=== PATIENT | female | born 1940 | race Caucasian/White ===

== ENCOUNTER → 2022-01-05 13:40 | Outpatient (CLI) | payer MEDICARE, OTHER, SELFPAY ==
--- NOTE | 2022-01-05 13:49 | DI.ECHO.S_ITS ---
[facility] +---------+ : : [address] : [address] : : : : [id number] : : : : Phone: [phone]---------+ Echocardiogram Report + + :Name: MELITA RANDALL Study Date: 01/05/2022 Height: 63 in : :[facility] ReadingLocation: Weight: 155 lb : : Gender: Female BSA: 1.7 m2 : :: 1940 Age: 81 yrs BP: 158/83 mmHg: :Reason For Study: Rheumatic Heart DZ : :Ordering Physician: KIRBY, : :KEVIN Meyers Performed By: Roland Ladd : :Referring: KEVIN ORR : + + Interpretation Summary The left ventricle is normal in size. There is mild-moderate concentric left ventricular hypertrophy. Left ventricular systolic function is normal. The ejection fraction is estimated to be 60-65%. There are no focal wall motion abnormalities. The right ventricle is normal in size and function. Pulmonary artery pressures cannot be estimated because of the lack of a measurable TR jet velocity. The aortic valve is severely calcified. There is moderate to severe aortic stenosis. The calculated aortic valve area is 0.9 cm2. The aortic valve mean gradient is 36 mmHg. There is no other significant valvular heart disease. The aortic root is normal size. Procedure: A two-dimensional transthoracic echocardiogram with color flow and Doppler was performed. The study quality was technically adequate. There is no prior echocardiogram noted for this patient. Left Ventricle: The left ventricle is normal in size. There is mild-moderate concentric left ventricular hypertrophy. Left ventricular systolic function is normal. The ejection fraction is estimated to be 60-65%. There are no focal wall motion abnormalities. Diastolic function could not be accurately assessed due to contradictory data. Right Ventricle: The right ventricle is normal in size and function. Atria: Both atria are normal in size. The interatrial septum grossly appears intact with no obvious evidence for an atrial septal defect. Mitral Valve: The mitral valve leaflets appear mildly thickened, but open well. There is mild mitral annular calcification. There is trace mitral regurgitation. Aortic Valve: The aortic valve is severely calcified. There is moderate to severe aortic stenosis. The aortic valve mean gradient is 36 mmHg. The peak aortic velocity is 4 m/sec. The calculated aortic valve area is 0.9 cm2. There is trace aortic regurgitation. Tricuspid Valve: The tricuspid valve is normal in structure and function. There is a trace or physiologic amount of tricuspid regurgitation. Pulmonary artery pressures cannot be estimated because of the lack of a measurable TR jet velocity. Pulmonic Valve: The pulmonic valve is normal in structure and function. There is trace pulmonic regurgitation. There is no other significant valvular heart disease. Great Vessels: The aortic root is normal size. The dimensions of the ascending aorta are normal. The IVC is of normal diameter and collapses greater than 50% with a sniff. This suggests a low right atrial pressure of 3 mm Hg. Pericardium/ Pleura There is no pericardial effusion. There is no pleural effusion. MMode/2D Measurements & Calculations LVIDd: 4.2 cm LVOT diam: 2.0 cm LVIDs: 2.8 cm Ao root diam: 3.0 cm FS: 32.7 % asc Aorta Diam: 3.1 cm IVSd: 1.1 cm LVPWd: 1.2 cm LV burt. diameter/BSA (cm/m^2): 2.4 LV sys. diameter/BSA (cm/m^2): 1.6 LA A2 area: 18.8 cm2 RA long axis: 4.4 cm LA A4 area: 15.9 cm2 RA area: 13.8 cm2 LA length (vol): 4.5 cm RA vol: 36.5 ml LA vol: 56.6 ml RA : 21.1 ml/m2 LA vol index: 32.6 ml/m2 TAPSE: 2.2 cm Doppler Measurements & Calculations Ao V2 max: 402.9 cm/sec LVOT Max Bran: 121.7 cm/sec Ao V2 mean: 283.0 cm/sec LV V1 max P.9 mmHg Ao max P.9 mmHg LV V1 VTI: 27.8 cm Ao mean P.1 mmHg MEGAN(I,D): 1.00 cm2 Ao V2 VTI: 85.3 cm MEGAN(V,D): 0.92 cm2 sev ratio: 0.33 MEGAN indexed to BSA (cm^2/m^2): 0.57 MV E max bran: 81.0 cm/sec SV(LVOT): 85.0 ml MV A max bran: 146.7 cm/sec MV E/A: 0.55 Med Peak E' Bran: 5.3 cm/sec E/E' med: 15.4 Lat Peak E' Bran: 4.8 cm/sec E/E' lat: 16.9 E/e' average: 16.1 MV dec time: 0.48 sec Reading Physician:08:04 AM
== END ==
PROVIDERS: PCP Family Medicine; Referring Provider Family Medicine; Visit Provider Family Medicine
DX: I35.0 Nonrheumatic aortic (valve) stenosis
CPT/HCPCS: 93306